=== PATIENT | female | born 1950 | race Caucasian/White ===

== ENCOUNTER → 2018-02-03 10:09 | Outpatient (CLI) | payer MEDICARE, OTHER, SELFPAY | PROVIDERS: Family Provider Nurse Practitioner Family; PCP Nurse Practitioner Family; Visit Provider Anesthesiology Pain Medicine | DX: M51.37 Other intervertebral disc degeneration, lumbosacral region (principal); M54.17 Radiculopathy, lumbosacral region; M79.605 Pain in left leg; R29.898 Other symptoms and signs involving the musculoskeletal system | CPT/HCPCS: 72148 ==

== ENCOUNTER → 2018-03-06 10:05 | Outpatient (CLI) | payer MEDICARE, OTHER, SELFPAY ==
[2018-03-03 12:31] LABS: Creatinine, Serum 0.89 mg/dL (0.55-1.02); EST Glomerular Filtration Rate 68 mL/min (>60); Est Glom Filt Rate - Afr Amer 82 mL/min (>60)
--- NOTE | 2018-03-06 10:54 | MRI_ITS ---
STUDY: MRI LUMBAR SPINE WITH CONTRAST REASON FOR EXAM: Female, 67 years old. Low back pain. Follow-up of unenhanced MRI of the lumbar spine dated February 03, 2018. TECHNIQUE: Standardized fat and water weighted pulse sequences were obtained in the sagittal and axial following I.V. administration of 20 ml of Dotarem contrast material. COMPARISON: MRI lumbar spine dated February 03, 2018. FINDINGS: T12-L1: Normal endplates. Normal disc height, signal and morphology. Normal bilateral facet joints. Normal central canal and bilateral lateral recesses. Normal bilateral intervertebral neural foramina. There is straightening of the normal lumbar lordosis. There is no substantial scoliosis. There is normal curvature of the lumbar spine with convexity towards left. Normal conus medullaris that terminates at the T12 level L1-2: There is narrowing of this disc. There is a broad central disc protrusion. There is bilateral neural foraminal narrowing. L2-3: There is moderate annular disk bulge and osteophyte complex. There is moderately severe degenerative arthropathy of the facet joints. Bilateral neuroforamina are narrowed without MR evidence for nerve impingement. There is moderate acquired central canal stenosis. L3-4: There is a left central disc extrusion with probable impingement of left L4 nerve root and lateral recess. There is severe acquired canal stenosis with possible impingement of the cauda equina at this level as well. What is thought to represent a disc fragment does not appear to enhance. This is bright on the T1-weighted images without IV contrast and the signal is similar after intravenous administration of contrast. There is moderately severe degenerative arthropathy of the facet joints. The neural foramina are moderately narrowed. L4-5: There is severe narrowing of this disc. There is a grade 1 spondylolisthesis at this level. There is severe degenerative arthropathy of the facet joints. There is a moderate acquired canal stenosis. There is probably impingement on the left L5 nerve root at the lateral recess. The neural foramina are severely narrowed with probable impingement of bilateral L4 nerve roots of the neural foramina. L5-S1: Normal endplates. This level has the appearance of a transitional segment with a rudimentary disc. Normal bilateral facet joints. Normal central canal and bilateral lateral recesses. Normal bilateral intervertebral neural foramina. Normal visualized sacral ala. Normal visualized paraspinous soft tissue structures. There is no demonstrated abnormal enhancement. MRI/Spine Lumbar WITH Contrast IMPRESSION: 1. No MR evidence to suggest abnormal enhancement. 2. Severe multilevel degenerative disc disease and degenerative arthropathy of the lumbar spine with acquired canal stenosis, neural foraminal narrowing and nerve impingement as described. Electronically Signed: Valeria Chris MD at 3:46 EDT , Service support ,
== END ==
PROVIDERS: Family Provider Nurse Practitioner Family; PCP Nurse Practitioner Family
DX: M43.16 Spondylolisthesis, lumbar region (principal); M48.061 Spinal stenosis, lumbar region without neurogenic claudication
CPT/HCPCS: 72149; 82565

== ENCOUNTER 2025-05-03 14:48 | Outpatient (CLI) | payer MEDICARE, OTHER, SELFPAY ==
[2025-05-03 18:40] LABS: Anion Gap 16 (5-15); BUN 38 mg/dL (4-19); BUN/Creat Ratio 21.9 RATIO (10-20); Calcium,Total 11.1 mg/dL (7.6-11.0); Carbon Dioxide 21.9 mmol/L (21.0-32.0); Chloride 99 mmol/L (98-108); Glucose 151 mg/dL (70-99); Potassium 4.5 mmol/L (3.3-5.1)
== END 2025-05-03 23:59 | disposition home or self-care (01) ==
LOC: MTLAB 14:50
PROVIDERS: PCP Nurse Practitioner Family; Referring Provider Anesthesiology Pain Medicine; Visit Provider Anesthesiology Pain Medicine
DX: Z79.1 Long term (current) use of non-steroidal anti-inflammatories (NSAID) (principal)
CPT/HCPCS: 36415; 80048

== ENCOUNTER → 2025-05-10 | Outpatient (CLI) | payer MEDICARE, OTHER, SELFPAY ==
--- NOTE | 2025-05-10 09:33 | MRI_ITS ---
PROCEDURE: SPINE LUMBAR W/WO CONTRAST 05/10/2025 REASON FOR EXAM: R/O CAUDA EQUINA SYNDROME TECHNIQUE: Procedure Code: [id number] Modality: MR Procedure: SPINE LUMBAR W/WO CONTRAST Multiplanar and multisequence images were obtained without and with intravenous gadolinium-based contrast administration. CONTRAST: Clariscan VOLUME: 20 mL COMPARISON: None. FINDINGS: Vertebrae: Provided in height and signal. Alignment: Anterolisthesis L4 on L5 by 5 mm. Conus Medullaris: Unremarkable. T12-L1: Disc bulge. Facet joints arthropathy. No significant foraminal or canal stenosis. L1-2: Disc desiccation. Disc bulge. Facet joint arthropathy. Ligamentum flavum hypertrophy. Severe narrowing of the right subarticular space. Severe right foramina stenosis. Moderate left foramina stenosis. Severe canal stenosis. L2-3: Disc bulge. Facet joint arthropathy. Ligamentum flavum hypertrophy. Severe bilateral foramina stenosis. Severe canal stenosis. L3-4: Status post posterior fusion. Status post laminectomies. Mild bilateral foramina stenosis. L4-5: Status post posterior fusion. Uncovered disc bulge. Status post laminectomies. Moderate bilateral foramina stenosis and abutment upon the exiting bilateral L4 nerves. L5-S1: Disc bulge. Facet joint arthropathy. Severe right and moderate left foramina stenosis with mass-effect upon the exiting bilateral L5 nerves. Mild canal stenosis. Sacrum: Unremarkable. Postcontrast images: No abnormal enhancement. MRI/Spine Lumbar W/WO Contrast IMPRESSION: No abnormal enhancement or infectious process. Status post posterior fusion of L3, L4-L5. Multilevel degenerate changes predo minantly at the adjacent L2-L3 level where there is severe canal stenosis and severe bilateral foramina stenosis Reading Location: [id number]
== END | disposition home or self-care (01) ==
LOC: MRI 09:24
PROVIDERS: PCP Nurse Practitioner Family; Referring Provider Anesthesiology Pain Medicine; Visit Provider Anesthesiology Pain Medicine
DX: K21.9 Gastro-esophageal reflux disease without esophagitis (principal); K29.40 Chronic atrophic gastritis without bleeding; K91.1 Postgastric surgery syndromes
CPT/HCPCS: 72158; A9575